=== PATIENT | female | born 1970 | race American Indian/Alaskan Native ===

== ENCOUNTER 2018-08-25 08:33 | Outpatient (CLI) | payer OTHER ==
--- NOTE | 2018-08-25 09:57 | Ultrasound Report ---
Limited abdominal ultrasound: Hepatomegaly on outside CT and. Transabdominal imaging demonstrates a slightly increased coarse echo pattern. There is no definite enlargement. No hepatic lobulation and no focal lesion noted. The gallbladder is echogenically unremarkable and the CBD diameter is 2.9 mm. The pancreas is echogenically unremarkable. The right kidney has a length of 9.8 cm with normal parenchymal thickness and unremarkable echogenicity. Impression: Nonspecific slight coarsening of the liver parenchyma. Consider cirrhosis.
== END 2018-08-25 08:34 | disposition home or self-care (01) ==
LOC: US 08:33
PROVIDERS: ATTEND Internal Medicine
DX: K76.89 Other specified diseases of liver (principal)
CPT/HCPCS: 76705